=== PATIENT | female | born 1980 | race Caucasian/White ===

== ENCOUNTER → 2020-08-16 | Outpatient (CLI) | payer BC | LOC: EXRD 13:34 | DX: E04.9 Nontoxic goiter, unspecified (principal) | CPT/HCPCS: 76536 ==

== ENCOUNTER → 2020-12-05 | Outpatient (CLI) | payer BC | LOC: EXRD 12:43 | DX: R59.0 Localized enlarged lymph nodes (principal) | CPT/HCPCS: 76536 ==